=== PATIENT | female | born 1935 | race Native Hawaiian/Other Pacific Islander ===

== ENCOUNTER 2017-02-04 10:04 | Outpatient (CLI) | payer OTHER ==
[~2017-02-04 10:04] MED LIST: AMLO5TAB PO; ASA LOW DOSE81 MG PO; LISI20TA11 PO; METOPROLOL25 M1 PO; OMEPRAZOLE20 M2 PO; POTA20TA4 PO; PRAVACHOL80 MG PO
== END 2017-02-04 11:05 | disposition home or self-care (01) ==
LOC: US 10:04
DX: R60.0 Localized edema (principal)

== ENCOUNTER 2017-03-05 14:17 | Outpatient (CLI) | payer OTHER | END 2017-03-05 14:21 | disposition short-term general hospital (02) | LOC: AMB 14:17 | DX: R07.89 Other chest pain (principal); R06.09 Other forms of dyspnea | CPT/HCPCS: A0425; A0427 ==

== ENCOUNTER 2017-03-05 14:20 | Emergency (ER) | payer OTHER ==
[~2017-03-05] VITALS: Ht 162.6 cm; Wt 62.1 kg
[2017-03-05 14:34] VITALS: TEMP 98
[2017-03-05 14:44] LABS: PLATELET COUNT 204 K/uL (152-353)
[2017-03-05 14:52] LABS: POTASSIUM 3.6 mmol/L (3.6-5.2)
[2017-03-05 18:59] VITALS: BP 148/88
== END 2017-03-05 19:30 | disposition short-term general hospital (02) ==
LOC: ED 14:20
PROVIDERS: Family Medicine
PROC: 0T9B70Z Drainage of Bladder with Drainage Device, Via Natural or Artificial Opening (ICD-10-PCS; principal; 2017-03-05)
DX: R07.89 Other chest pain (principal); K21.9 Gastro-esophageal reflux disease without esophagitis; I48.91 Unspecified atrial fibrillation
CPT/HCPCS: 36415; 51702; 80053; 81000; 82550; 84484; 85027; 93005; 96361; 96368; 96374; 99285; J3490

== ENCOUNTER 2017-03-05 19:33 | Outpatient (CLI) | payer OTHER | END 2017-03-05 23:11 | disposition short-term general hospital (02) | LOC: AMB 19:33 | DX: R07.89 Other chest pain (principal); K21.9 Gastro-esophageal reflux disease without esophagitis; I48.91 Unspecified atrial fibrillation | CPT/HCPCS: A0425; A0427 ==

== ENCOUNTER 2018-02-25 10:01 | Outpatient (CLI) | payer OTHER ==
[2018-02-25 10:40] LABS: POTASSIUM 3.4 mmol/L (3.6-5.2)
[2018-02-25 11:26] LABS: PLATELET COUNT 218 K/uL (152-353)
== END 2018-02-25 19:44 | disposition home or self-care (01) ==
LOC: LABW 10:01
PROVIDERS: Internal Medicine
DX: N18.9 Chronic kidney disease, unspecified (principal); E53.9 Vitamin B deficiency, unspecified; R53.83 Other fatigue; E55.9 Vitamin D deficiency, unspecified; I10 Essential (primary) hypertension
CPT/HCPCS: 36415; 80053; 81000; 82043; 82306; 82570; 82607; 83735; 83970; 84100; 84155; 85027; 85651; 87077; 87086; 87088; 87186

== ENCOUNTER 2018-07-13 08:39 | Outpatient (CLI) | payer OTHER ==
[2018-07-13 08:58] LABS: PLATELET COUNT 201 K/uL (152-353)
== END 2018-07-13 19:18 | disposition home or self-care (01) ==
LOC: LABW 08:39
PROVIDERS: Internal Medicine
DX: N18.3 Chronic kidney disease, stage 3 (moderate) (principal); R82.998 Other abnormal findings in urine
CPT/HCPCS: 36415; 80053; 81000; 82043; 82330; 82570; 83735; 84100; 84155; 85027; 87077; 87086; 87088; 87186

== ENCOUNTER 2018-09-01 09:10 | Outpatient (CLI) | payer OTHER ==
[2018-09-01 09:30] LABS: POTASSIUM 2.8 mmol/L (3.6-5.2)
== END 2018-09-01 22:21 | disposition home or self-care (01) ==
LOC: LABW 09:10
PROVIDERS: Internal Medicine
DX: E87.6 Hypokalemia (principal)
CPT/HCPCS: 36415; 80048

== ENCOUNTER 2018-09-13 08:49 | Outpatient (CLI) | payer OTHER ==
[2018-09-13 09:12] LABS: POTASSIUM 3.5 mmol/L (3.6-5.2)
== END 2018-09-13 23:11 | disposition home or self-care (01) ==
LOC: LABW 08:49
PROVIDERS: Internal Medicine
DX: E87.6 Hypokalemia (principal)
CPT/HCPCS: 36415; 80048

== ENCOUNTER 2019-08-08 08:20 | Outpatient (CLI) | payer OTHER ==
[2019-08-08 10:21] LABS: PLATELET COUNT 212 K/uL (152-353)
== END 2019-08-08 19:41 | disposition home or self-care (01) ==
LOC: LABW 08:20
PROVIDERS: Internal Medicine
DX: N18.3 Chronic kidney disease, stage 3 (moderate) (principal); R82.998 Other abnormal findings in urine
CPT/HCPCS: 36415; 80053; 81000; 82330; 82570; 83735; 84100; 84155; 85027; 87077; 87086; 87088; 87186

== ENCOUNTER 2020-01-17 13:45 | Outpatient (CLI) | payer OTHER ==
[2020-01-20] MEDS ORDERED: CHLORTHALID25 MG PO (12:07)
[2020-01-20] MEDS ORDERED: CARV3.12 PO (12:07)
[2020-01-20] MEDS ORDERED: EVISTA60 MG PO (12:08)
[2020-01-20] MEDS ORDERED: AMLODIPINE BESYLATE PO (12:08)
[2020-01-20] MEDS ORDERED: RANOLAZINE ER500 MG PO (12:08)
[2020-01-20] MEDS ORDERED: ISOS30TA17 PO (12:09)
== END 2020-01-17 19:51 | disposition home or self-care (01) ==
LOC: LAB 13:45
DX: U07.1 COVID-19 (principal)
CPT/HCPCS: 87635; G2023; U0002

== ENCOUNTER 2020-12-31 10:33 | Outpatient (CLI) | payer OTHER ==
[~2020-12-31 10:33] MED LIST changes: +AMLODIPINE BESYLATE PO; +CARV3.12 PO; +CHLORTHALID25 MG PO; +EVISTA60 MG PO; +ISOS30TA17 PO; +RANOLAZINE ER500 MG PO
[2020-12-31 11:07] LABS: PLATELET COUNT 174 K/uL (152-353)
[2020-12-31 11:31] LABS: POTASSIUM 3.7 mmol/L (3.6-5.2)
== END 2020-12-31 22:42 | disposition home or self-care (01) ==
LOC: LABW 10:33
PROVIDERS: ATTEND Nurse Practitioner
DX: N18.31 Chronic kidney disease, stage 3a (principal); E55.9 Vitamin D deficiency, unspecified; R53.83 Other fatigue; D64.9 Anemia, unspecified; E53.8 Deficiency of other specified B group vitamins; Z79.899 Other long term (current) drug therapy
CPT/HCPCS: 36415; 80053; 81000; 82306; 82330; 82570; 82607; 82728; 82746; 83036; 83540; 83550; 83735; 84100; 84155; 84439; 84443; 85027; 85652; 86038

== ENCOUNTER 2023-09-03 14:24 | Inpatient (IN) | payer OTHER ==
[~2023-09-03] VITALS: Ht 167.6 cm; Wt 60.1 kg
[2023-09-03] VITALS (32 sets, daily range): BP systolic 66–129; BP diastolic 29–58; TEMP 97
[2023-09-03 14:41] LABS: PLATELET COUNT 141 K/uL (152-353)
[2023-09-03] MEDS ORDERED: SODIUM CHLORIDE 0.9% 500ML BAG IV ONE (14:44)
[2023-09-03] MEDS ORDERED: SODIUM CHLORIDE 0.9% 1,000 ML IV ONE (14:46)
[2023-09-03 14:49] LABS: POTASSIUM 4.3 mmol/L (3.6-5.2)
[2023-09-03] MEDS ORDERED: NOREPINEPHRINE IV ONE (15:59)
[2023-09-03] MEDS ORDERED: SODIUM CHLORIDE 0.9% 250 ML IV ONE (15:59)
[2023-09-03] MEDS ORDERED: NOREPINEPHRINE BITARTRATE 4 MG in SODIUM CHLORIDE 0.9% 250 ML IV SCH (16:01)
[2023-09-03] MEDS ORDERED: [UNRECOGNIZED DRUG - OTHER] TOP ONE (17:01)
[2023-09-03] MEDS ORDERED: NEOMYCIN TOP ONE ×3 (18:28→19:01)
[2023-09-03] MEDS ORDERED: BACITRACIN TOP ONE ×3 (18:28→19:01)
[2023-09-03] MEDS ORDERED: [UNRECOGNIZED DRUG - OTHER] TOP ONE ×3 (18:28→19:01)
[2023-09-03] MEDS ORDERED: ACETAMINOPHEN 325 MG TAB PO PRN (21:30)
[2023-09-03] MEDS ORDERED: SODIUM CHLORIDE 0.9% 1,000 ML IV SCH (21:30)
[2023-09-03] MEDS ORDERED: GI COCKTAIL-HYOSCYAMINE 30 ML ML PO PRN (21:30)
[2023-09-04] VITALS (8 sets, daily range): BP systolic 129–161; BP diastolic 56–88; TEMP 98–99.2; Ht 167.6 cm; Wt 60.1 kg
[2023-09-04] MEDS ORDERED: DIPHENHYDRAMINE HCL 50 MG INJ INJ ONE (00:32)
[2023-09-04 05:04] LABS: POTASSIUM 3.7 mmol/L (3.6-5.2)
[2023-09-04 06:18] LABS: PLATELET COUNT 107 K/uL (152-353)
[2023-09-04] MEDS ORDERED: ASPIRIN 325 MG TAB PO SCH (09:00)
[2023-09-04] MEDS ORDERED: PANTOPRAZOLE SODIUM 40 MG TAB PO SCH (09:00)
[2023-09-04] MEDS ORDERED: ALPR0.2566 PO (09:06)
[2023-09-04] MEDS ORDERED: FUROSEMIDE40 MG PO (09:07)
[2023-09-04] MEDS ORDERED: NITROFURANTOIN100 M1 PO (09:08)
[2023-09-04] MEDS ORDERED: NEURONTIN 100M100 MG PO (09:21)
[2023-09-04] MEDS ORDERED: CARV6.25 PO (09:21)
[2023-09-04] MEDS ORDERED: REMERON30 MG PO (09:22)
[2023-09-04] MEDS ORDERED: EUTHYROX50 MCG PO (09:22)
[2023-09-04] MEDS ORDERED: POT CHLORIDE10 ME1 PO (09:23)
[2023-09-04] MEDS ORDERED: BUSPIRONE HCL10 MG PO (09:24)
[2023-09-04] MEDS ORDERED: COZAAR25 MG PO (09:24)
[2023-09-04] MEDS ORDERED: CVS STOOL SOFT100 MG PO (09:25)
[2023-09-04] MEDS ORDERED: OMEPRAZOLE40 MG PO (09:25)
[2023-09-04] MEDS ORDERED: LOVASTATIN40 MG PO (09:26)
[2023-09-04] MEDS ORDERED: TRAMADOL HYDROC50 MG PO (09:27)
[2023-09-04] MEDS ORDERED: TIZANIDINE HYDRO2 MG PO (09:28)
[2023-09-04] MEDS ORDERED: LEVOCETIRIZINE D5 MG PO (09:29)
[2023-09-04] MEDS ORDERED: [UNRECOGNIZED DRUG - OTHER] IM (09:30)
[2023-09-04] MEDS ORDERED: CARVEDILOL 6.25 MG TAB PO SCH (12:00)
[2023-09-04] MEDS ORDERED: ALBUTEROL 90 MCG INH SCH (18:00)
[2023-09-04] MEDS ORDERED: MDI INH SCH (18:00)
[2023-09-04] MEDS ORDERED: AMLODIPINE BESYLATE 5 MG TAB PO SCH (21:00)
[2023-09-05 02:24] VITALS: BP 154/72; TEMP 98.3
[2023-09-05 04:00] VITALS: BP 155/72; TEMP 98.2
[2023-09-05 05:58] LABS: POTASSIUM 3.1 mmol/L (3.6-5.2)
[2023-09-05 05:59] LABS: PLATELET COUNT 104 K/uL (152-353)
[2023-09-05] MEDS ORDERED: ISOSORBIDE MONONITRATE 30 MG TAB PO SCH (10:00)
[2023-09-05] MEDS ORDERED: LOSARTAN 50 MG TAB PO SCH (10:00)
[2023-09-05] MEDS ORDERED: AMLODIPINE BESYLATE 5 MG TAB PO SCH (10:00)
[2023-09-05 12:00] VITALS: BP 133/62; TEMP 99.3
[2023-09-05 16:35] VITALS: BP 147/63; TEMP 97.9
[2023-09-05 19:55] VITALS: BP 127/72; TEMP 98
[2023-09-06] VITALS (7 sets, daily range): BP systolic 118–168; BP diastolic 52–73; TEMP 98.2–98.8
[2023-09-06 05:13] LABS: PLATELET COUNT 118 K/uL (152-353)
[2023-09-06] MEDS ORDERED: ALPRAZOLAM 0.25 MG TAB PO PRN (13:00)
[2023-09-06] MEDS ORDERED: RANOLAZINE 500 MG TAB PO SCH (13:00)
[2023-09-06] MEDS ORDERED: BUSPIRONE HCL 5 MG TAB PO SCH (13:00)
[2023-09-06] MEDS ORDERED: [UNRECOGNIZED DRUG - OTHER] TOP PRN (15:00)
[2023-09-06] MEDS ORDERED: LEVOTHYROXINE 50 MCG PO SCH (15:00)
[2023-09-06] MEDS ORDERED: NEOMYCIN TOP PRN (15:00)
[2023-09-06] MEDS ORDERED: BACITRACIN TOP PRN (15:00)
[2023-09-06] MEDS ORDERED: GABAPENTIN 300 MG CAP PO SCH (21:00)
[2023-09-06] MEDS ORDERED: POTASSIUM CHL PO SCH (21:00)
[2023-09-06] MEDS ORDERED: MIRTAZAPINE 15 MG TAB PO SCH (21:00)
[2023-09-06] MEDS ORDERED: MELATONIN 5 MG TAB PO SCH (22:00)
[2023-09-07 03:36] VITALS: BP 140/60; TEMP 97.6
[2023-09-07 08:00] VITALS: BP 154/70; TEMP 98.1
[2023-09-07] MEDS ORDERED: LOSARTAN 50 MG TAB PO SCH (09:00)
[2023-09-07 09:26] LABS: PLATELET COUNT 144 K/uL (152-353)
[2023-09-07 09:31] LABS: POTASSIUM 3.1 mmol/L (3.6-5.2)
[2023-09-07 12:00] VITALS: BP 119/53; TEMP 97.9
[2023-09-07 16:00] VITALS: BP 138/60; TEMP 98
[2023-09-07 19:45] VITALS: BP 134/60; TEMP 97.9
[2023-09-08] VITALS: BP 139/61; TEMP 98.8
[2023-09-08 03:44] VITALS: BP 134/61; TEMP 99.4
[2023-09-08 08:12] LABS: POTASSIUM 3.4 mmol/L (3.6-5.2)
[2023-09-08 08:19] VITALS: BP 144/73; TEMP 98.1
[2023-09-08 08:36] LABS: PLATELET COUNT 175 K/uL (152-353)
[2023-09-08] MEDS ORDERED: POTASSIUM CHL 20 MEQ TAB PO SCH (11:00)
[2023-09-08 11:56] VITALS: BP 116/68; TEMP 98.3
[2023-09-08 15:57] VITALS: BP 111/65; TEMP 98.3
[2023-09-08 20:00] VITALS: BP 120/56; TEMP 98.4
[2023-09-09 04:00] VITALS: BP 107/62; TEMP 98.6
[2023-09-09 08:00] VITALS: BP 160/72; TEMP 98.3
[2023-09-09] MEDS ORDERED: VITAMIN B12 IM SCH (09:00)
[2023-09-09 12:04] VITALS: BP 122/47; TEMP 98.1
== END 2023-09-09 13:47 | DRG 179 ==
LOC: ED 14:24 → MED/SURG 19:27
PROVIDERS: Family Medicine; Internal Medicine Endocrinology, Diabetes & Metabolism; ADMIT Family Medicine; ATTEND Internal Medicine
PROC: 09QKXZZ Repair Nasal Mucosa and Soft Tissue, External Approach (ICD-10-PCS; principal; 2023-09-03)
DX: U07.1 COVID-19 (principal); I95.89 Other hypotension; R53.1 Weakness; E86.0 Dehydration; R55 Syncope and collapse; R19.7 Diarrhea, unspecified; W19.XXXA Unspecified fall, initial encounter; Y93.89 Activity, other specified; Y92.89 Other specified places as the place of occurrence of the external cause; I10 Essential (primary) hypertension; I48.91 Unspecified atrial fibrillation; R60.0 Localized edema; E78.49 Other hyperlipidemia; G62.9 Polyneuropathy, unspecified; G89.4 Chronic pain syndrome; E03.8 Other specified hypothyroidism; F41.8 Other specified anxiety disorders; K58.8 Other irritable bowel syndrome; E87.6 Hypokalemia; E88.09 Other disorders of plasma-protein metabolism, not elsewhere classified; D64.89 Other specified anemias; D69.6 Thrombocytopenia, unspecified; M25.511 Pain in right shoulder; R05.9 Cough, unspecified; S01.21XA Laceration without foreign body of nose, initial encounter; R41.0 Disorientation, unspecified
CPT/HCPCS: 36415; 80048; 80053; 80307; 81002; 82607; 82747; 83735; 83880; 84100; 84443; 84484; 85027; 85610; 87015; 87045; 87324; 87328; 87329; 87449; 87507; 87635; 87899; 93005; 94667; 94668; 94760; 96360; 96361; 96365; 99284; J3420; J3490; U0003